=== PATIENT | female | born 1970 | race Caucasian/White ===

== ENCOUNTER → 2016-08-14 | Outpatient (CLI) | payer BC ==
--- NOTE | 2016-08-14 18:41 | RAD ---
EXAM DESCRIPTION: Elbow,Left 3 Views CLINICAL HISTORY: 46 years, Female, PAIN IN LEFT ELBOW COMPARISON: None. FINDINGS: No fracture or dislocation. No visualized joint effusion IMPRESSION: Unremarkable evaluation of the left elbow Electronically signed by: Fabien Kolb MD 08/14/2016 6:41 PM CDT
--- NOTE | 2016-08-14 18:42 | RAD ---
EXAM DESCRIPTION: Wrist,Left 3 Views CLINICAL HISTORY: 46 years, Female, PAIN IN LEFT WRIST COMPARISON: None. FINDINGS: No fracture or dislocation. Some mild degenerative narrowing of the radiocarpal joint space probably within normal limits for age. IMPRESSION: No fracture or dislocation Electronically signed by: Fabien Kolb MD 08/14/2016 6:42 PM CDT
--- NOTE | 2016-08-14 18:43 | RAD ---
EXAM DESCRIPTION: Forearm,Left CLINICAL HISTORY: 46 years, Female, PAIN IN LEFT FOREARM COMPARISON: None. FINDINGS: No fracture or dislocation Electronically signed by: Fabien Kolb MD 08/14/2016 6:43 PM CDT
== END ==
LOC: RAD 09:03
PROVIDERS: ATTEND Orthopaedic Surgery
DX: M25.522 Pain in left elbow (principal); M79.632 Pain in left forearm; M25.532 Pain in left wrist